=== PATIENT | male | born 1985 | race Caucasian/White ===

== ENCOUNTER 2018-04-08 16:11 | Observation (INO) | payer SELFPAY ==
[2018-04-08 17:35] LABS: Bilirubin Small (Negative); Blood, Urine Negative (Negative); Clarity CLEAR (Clear); Glucose, Urine (Dipstick) Negative (Negative); Leukocyte Trace (Negative); Nitrite Negative (Negative); Protein, Urine (Dipstick) Trace mg/dL (Neg-Trace); Specific Gravity, Urine 1.035 (1.002-1.036); pH, Urine 5.5 (5.0-9.0)
[2018-04-08 17:37] LABS: Bacteria/HPF None Seen HPF (None Seen); Pathc Cast-AUWi Flag 1.16 (0-2.49); RBC/HPF None Seen HPF (0-3)
[2018-04-08 17:47] LABS: Amphetamine Detected (NotDetected); Medtox Reader # READER 4; Methamphetamine Detected (NotDetected); THC/Cannabinoid Screen Detected (NotDetected)
[2018-04-08 17:48] LABS: Barbiturates Screen Not Detected (NotDetected); Benzodiazepine Screen Not Detected (NotDetected); Cocaine Metabolite Screen Not Detected (NotDetected); Medtox Control Line Valid? VALID (VALID); Methadone Not Detected (NotDetected); Opiate Screen Not Detected (NotDetected); Oxycodone Screen Not Detected (NotDetected); Phencyclidine (PCP) Not Detected (NotDetected); Tricyclic Screen Not Detected (NotDetected)
[2018-04-08 17:52] LABS: #Basophils 0.1 thou/uL (0.0-0.2); #Eosinphils 0.1 thou/uL (0.0-0.7); #Lymphocytes 1.5 thou/uL (1.20-3.40); #Monocytes 0.7 thou/uL (0.11-0.59); #Neutrophils 9.5 thou/uL (1.40-6.50); %Basophils 0.8 % (0.0-1.0); %Eosinophils 1.1 % (0.0-10.0); %Lymphocytes 12.5 % (21.0-51.0); %Monocytes 5.7 % (0.0-10.0); Hemoglobin 12.5 g/dL (14.0-18.0); Mean Corpuscular HGB CONC 32.8 g/dL (32.0-36.0); Mean Corpuscular Hemoglobin 29.3 pg (27.0-31.0); Mean Corpuscular Volume 89.1 fL (78.0-98.0); Mean Platelet Volume 6.7 fL (7.4-10.4); Platelet Count 336 thou/uL (130-400); RBC Distribution Width 12.4 % (11.5-14.5); Red Blood Cell (RBC) Count 4.26 mill/uL (4.70-6.10); White Blood Cell (WBC) Count 11.9 thou/uL (4.8-10.8)
[2018-04-08 17:55] LABS: Hyaline Casts/LPF 0-3 HYALINE CAST LPF (0-3 Hyaline); Squamous Epithelial 0-3 HPF (0-3); Transitional Epithelial 0-3 HPF (0-3)
[2018-04-08 18:17] LABS: ALT (SGPT) 13 U/L (8-55); AST (SGOT) 18 U/L (5-34); Acetaminophen Less than 6.0 mcg/mL (10.0-30.0); Alcohol Less than 10 mg/dL (Less than 10); Alkaline Phosphatase 72 U/L (40-150); Anion Gap 11 mmol/L (10-20); BUN (Urea Nitrogen) 19 mg/dL (8.9-20.6); Bilirubin, Total 0.4 mg/dL (0.2-1.2); CK (CPK) 285 U/L (30-200); Calc. Creatinine Clearance 0 mL/min (70-130); Calcium 8.6 mg/dL (7.8-10.44); Carbon Dioxide 26 mmol/L (22-29); Chloride 106 mmol/L (98-107); Estimated GFR-MDRD 74; Globulin 2.9 g/dL (2.4-3.5); Glucose 100 mg/dL (70-105); Potassium 3.8 mmol/L (3.5-5.1); Protein, Total 6.9 g/dL (6.0-8.3); Salicylate Less than 8.0 mg/dL (15.0-30.0); Sodium 139 mmol/L (136-145)
[2018-04-09] MEDS ORDERED: Lorazepam 2 MG/ML VIAL SLOW IVP PRN (01:10)
[2018-04-09] MEDS ORDERED: Ondansetron PF 4 MG/2 ML Vial IVP PRN (01:10)
[2018-04-09] MEDS ORDERED: Ondansetron ODT 4 MG TAB SL PRN (01:10)
[2018-04-09 01:19] VITALS: BMI 23.9
[2018-04-09] MEDS: Sodium Chloride 0.9% 1,000 ML IV SCH ×3 (01:48→09:00)
[2018-04-09] MEDS ORDERED: Acetaminophen 325 MG TAB PO PRN (10:03)
[2018-04-09] MEDS ORDERED: Ondansetron ODT 4 MG TAB PO PRN (10:03)
--- NOTE | 2018-04-09 10:13 | PDOC.EVN ---
Event Note - Event Note Event Note: course and management reviewed with Walter Crum NP. agree, home today
--- NOTE | 2018-04-09 10:35 | HP ---
PRIMARY CARE PHYSICIAN: No primary care provider. HISTORY OF PRESENT ILLNESS: The patient was brought to the emergency room last night, hallucinating about a snake biting him on the butt and then crawling up his rectum into his abdominal cavity, bitin g him on the inside. He has had no nausea and vomiting, no diarrhea. PAST MEDICAL HISTORY: He says he has hypertension, but takes no medicines. ALLERGIES: He has no medical allergies. PAST SURGICAL HISTORY: He denies any surgeries. FAMILY HISTORY: His mother and father both have back problems. SOCIAL HISTORY: He is , smokes one pack a day. Denies alcohol. He admits to methamphetamine and THC. REVIEW OF SYSTEMS: GENERAL: No headaches, dizziness or fainting. EYES: No double vision, blurred vision, flashing lights. ENT: No ear pain or drainage. No nasal bleeding. No trouble swallowing. CARDIAC: No chest pain, orthopnea or paroxysmal nocturnal dyspnea. RESPIRATORY: No cough, wheezing or asthma. GASTROINTESTINAL: See present illness. GENITOURINARY: No hematuria or dysuria. MUSCULOSKELETAL: Occasionally pain in his legs. He thinks he might have a pinched nerve. NEUROLOGIC: No strokes, seizures or focal weakness. PSYCHIATRIC: He states he does have a history of bipolar. SKIN: No bruising, bleeding or rash. HEME/LYMPH: No tender or swollen lymph nodes in axilla, inguinal or cervical area. PHYSICAL EXAMINATION: GENERAL: He is alert, oriented, cooperative. VITAL SIGNS: Temperature 97.6, pulse 86, respirations 16, blood pressure 131/88. He is still insisting that a snake curled up his rectum and is biting him on the inside, he points to the right lower quadrant as his pain. HEENT: Reveal pupils equal, round, and reactive to light. Extraocular movements are intact. Sclera e white. Tympanic membranes clear. Nose clear and throat is clear. NECK: Supple, without jugular venous distention, adenopathy or thyromegaly. CHEST: Clear to auscultation and percussion. HEART: Regular rate and rhythm. First and second heart sounds are clear. There are no murmurs or g allops. ABDOMEN: Soft, bowel sounds are normal. There is no hepatosplenomegaly, no rebound, no guarding, no bruits. EXTREMITIES: Reveal no cyanosis, clubbing or edema. PULSES: Carotid, radial, femoral, and dorsalis pedis pulses intact. SKIN: Warm and dry without bruises, rash or evidence of a bite on his buttocks. LYMPHATIC SURVEY: No tender or swollen lymph nodes in axilla, inguinal or cervical area. NEUROLOGICAL: Cranial nerves II-XII are intact. Deep tendon reflexes symmetric. Moves all extremit ies. LABORATORY AND X-RAY FINDINGS: Drug screen positive for amphetamines, methamphetamines and THC. Com p metabolic profile was normal except for a mildly elevated CK of 285. White count 11.9, hemoglobin 12.5, platelet count 336. The patient is insistent on having an x-ray of his abdomen to find the snake. I have told him I will do a rectal exam to see. He has declined a rectal exam. ASSESSMENT: 1. Acute encephalopathy from polysubstance abuse. 2. Polysubstance abuse. 3. Untreated hypertension by history, currently normotensive. PLAN: We will watch the next few hours. If nothing develops, he develops no further delusional or h allucinatory thoughts, we will discharge home. I have advised him of such.
--- NOTE | 2018-04-09 11:55 | DIS ---
DATE OF ADMISSION: 04/09/2018 DATE OF DISCHARGE: 04/09/2018 TRANSFER OF CARE DISCHARGE DISPOSITION: Home. PRIMARY CARE PROVIDER: None. FINAL DIAGNOSES: 1. Encephalopathy with hallucinations. 2. Polysubstance abuse with THC and methamphetamine. DISCHARGE MEDICATIONS: None. CODE STATUS: Full. DIET: No restrictions. PENDING AT THE TIME OF DISCHARGE: Nothing. HOSPITAL COURSE: The patient presented to the emergency room, hallucinating about being bit on the b uttocks by a snake and the snake crawling up into his rectum and biting him all over his insides. Hi s physical examination was unremarkable. His only pertinent lab was positive drug screen for ampheta mines, methamphetamine and THC. He is now calm, is desirous of going home. He is being discharged. I have told him he should find a PCP for medical care. CONSULTATIONS: No consultations. PROCEDURES: No procedures.
[2018-04-09 12:06] VITALS: BP 130/83; TEMP 97.3
== END 2018-04-09 12:59 | disposition home or self-care (01) ==
LOC: ERS 16:11 → 2SW 04-09 00:49
PROVIDERS: ADMIT Internal Medicine; ATTEND Internal Medicine
DX: G93.40 Encephalopathy, unspecified (principal); F15.10 Other stimulant abuse, uncomplicated; F19.10 Other psychoactive substance abuse, uncomplicated
CPT/HCPCS: 36415; 51701; 80053; 80306; 80307; 81003; 81015; 82550; 84443; 85025; 96360; 96361; G0378

== ENCOUNTER 2018-09-22 09:27 | Emergency (ER) | payer SELFPAY | END 2018-09-22 11:59 | disposition home or self-care (01) | LOC: ERS 09:27 | DX: K04.7 Periapical abscess without sinus (principal); K02.9 Dental caries, unspecified; F17.210 Nicotine dependence, cigarettes, uncomplicated | CPT/HCPCS: 99282 ==

== ENCOUNTER 2018-11-13 13:15 | Emergency (ER) | payer SELFPAY ==
--- NOTE | 2018-11-13 14:07 | RAD ---
LEFT FOOT THREE VIEWS: 11/13/18 HISTORY: Left foot injury following stepping on a nail three days ago with swelling and redness and drainage f rom site. FINDINGS/IMPRESSION: No fracture, dislocation, or other significant acute osseous abnormality. If there is concern for abs cess, follow-up MRI study with and without IV contrast might be of benefit. POS: [facility]
[2018-11-13] MEDS ORDERED: Adacel (T-DAP) 0.5 ML SYRINGE ONE (14:49)
[2018-11-13] MEDS ORDERED: Lidocaine 1% (PF) 30 ML VIAL ONE (15:08)
[2018-11-13] MEDS ORDERED: Ketorolac Tromethamine 30 MG/ML VIAL ONE (15:20)
== END 2018-11-13 16:15 | disposition home or self-care (01) ==
LOC: ERS 13:15
DX: S91.332A Puncture wound without foreign body, left foot, initial encounter (principal); L03.116 Cellulitis of left lower limb; F41.9 Anxiety disorder, unspecified; F32.9 Major depressive disorder, single episode, unspecified; F17.210 Nicotine dependence, cigarettes, uncomplicated; W45.0XXA Nail entering through skin, initial encounter
CPT/HCPCS: 90471; 90715; 96372; J1885; J2001

== ENCOUNTER 2018-12-26 17:40 | Emergency (ER) | payer SELFPAY ==
--- NOTE | 2018-12-26 18:22 | RAD ---
RIGHT FOOT: 12/26/18 Three views. HISTORY: Injury. Tarsals appear intact. The metatarsals and phalanges appear intact. Circumscribed lucency in the pro ximal phalanx of the great toe has benign appearance. MTP joints unremarkable with minimal degenerati ve change at the first MTP joint. IMPRESSION: No acute abnormality identified. POS: [facility]
[2018-12-26] MEDS ORDERED: Bacitracin 1 PK ONE (18:23)
== END 2018-12-26 18:28 | disposition home or self-care (01) ==
LOC: ERS 17:40
DX: S91.101A Unspecified open wound of right great toe without damage to nail, initial encounter (principal); F41.9 Anxiety disorder, unspecified; F32.9 Major depressive disorder, single episode, unspecified; F17.210 Nicotine dependence, cigarettes, uncomplicated; W26.8XXA Contact with other sharp object(s), not elsewhere classified, initial encounter

== ENCOUNTER 2020-02-02 16:31 | Emergency (ER) | payer SELFPAY ==
[2020-02-02] MEDS ORDERED: Bicillin LA 2.4 MILL.UNITS/4 ML SYRINGE ONE (17:43)
[2020-02-02 18:12] LABS: Syphilis Antibody Nonreactive (Nonreactive); Syphilis Antibody Index 0.05 S/CO (<1.00 Non-Reactive)
== END 2020-02-02 18:10 | disposition home or self-care (01) ==
LOC: ERS 16:31
DX: S31.21XA Laceration without foreign body of penis, initial encounter (principal); A51.0 Primary genital syphilis; F41.9 Anxiety disorder, unspecified; F32.9 Major depressive disorder, single episode, unspecified; F17.210 Nicotine dependence, cigarettes, uncomplicated; X58.XXXA Exposure to other specified factors, initial encounter
CPT/HCPCS: 36415; 86780; 96372; 99283; J0561

== ENCOUNTER 2020-07-11 12:41 | Inpatient (IN) | payer SELFPAY ==
[~2020-07-11 12:41] MED LIST: Iopamidol-370 76% 500 ML 1 ML ONE
[2020-07-11 15:55] LABS: Hemoglobin 12.1 g/dL (14.0-18.0); Mean Corpuscular HGB CONC 33.3 g/dL (32.0-36.0); Mean Corpuscular Hemoglobin 29.3 pg (27.0-31.0); Mean Corpuscular Volume 88.1 fL (78.0-98.0); Mean Platelet Volume 6.2 fL (7.4-10.4); Platelet Count 509 thou/uL (130-400); RBC Distribution Width 12.3 % (11.5-14.5); Red Blood Cell (RBC) Count 4.11 mill/uL (4.70-6.10); White Blood Cell (WBC) Count 20.1 thou/uL (4.8-10.8)
[2020-07-11 16:15] LABS: ALT (SGPT) 29 U/L (8-55); AST (SGOT) 23 U/L (5-34); Albumin 3.8 g/dL (3.5-5.0); Alkaline Phosphatase 101 U/L (40-110); Anion Gap 19 mmol/L (10-20); BUN (Urea Nitrogen) 18 mg/dL (8.9-20.6); Bilirubin, Total 0.4 mg/dL (0.2-1.2); Calc. Creatinine Clearance 0 mL/min (70-130); Carbon Dioxide 24 mmol/L (22-29); Chloride 94 mmol/L (98-107); Globulin 4.4 g/dL (2.4-3.5); Glucose 106 mg/dL (70-105); Lipase 6 U/L (8-78); Potassium 4.1 mmol/L (3.5-5.1); Protein, Total 8.2 g/dL (6.0-8.3); Sodium 133 mmol/L (136-145)
[2020-07-11 16:19] LABS: Band 18 % (5-11); Eosinophils 1 % (0-10); Lymphocytes 7 % (21-51); MDiff Complete? YES; Monocytes 8 % (0-10); Neutrophil 66 % (42-75); Platelet Morphology Comment Appears Increased; RBC Morphology Normal
[2020-07-11 16:44] LABS: #Basophils 0.1 thou/uL (0.0-0.2); #Eosinphils 0.3 thou/uL (0.0-0.7); #Lymphocytes 2.1 thou/uL (1.20-3.40); #Neutrophils 15.9 thou/uL (1.40-6.50); %Basophils 0.3 % (0.0-1.0); %Eosinophils 1.5 % (0.0-10.0); %Lymphocytes 10.1 % (21.0-51.0); %Neutrophils 78.1 % (42.0-75.0)
[2020-07-11 18:30] LABS: Bilirubin Negative (Negative); Blood, Urine Negative (Negative); Clarity Clear (Clear); Glucose, Urine (Dipstick) Normal (Negative); Ketone, Urine Negative (Negative); Leukocyte Negative Leu/uL (Negative); Nitrite Negative (Negative); Protein, Urine (Dipstick) 20 mg/dL (Neg-Trace); Urobilinogen Normal mg/dL (Less than 2); pH, Urine 5.5 (5.0-9.0)
[2020-07-11] MEDS ORDERED: Piperacillin/Tazobactam 4.5 GM VIAL ONE (18:31)
--- NOTE | 2020-07-11 19:01 | CT ---
CT ABDOMEN AND PELVIS WITH IV CONTRAST: History: Abdominal pain FINDINGS: The lung bases are clear. The liver, spleen, pancreas, adrenal glands and kidneys are normal. No calc ified gallstones are seen. No free air is seen. There is a small amount of free fluid in the right lo wer quadrant. There is thickening of the wall of the right colon and cecum. There are multiple air fl uid collections in the right lower quadrant/pelvis inferior to the cecum, the largest measuring 6.5 x 3.3 x 6 cm. Enlarged ileocecal lymph nodes are present. There is a moderate amount of free fluid in the pelvis. IMPRESSION: Multiple abcesses in the right lower quadrant/pelvis, likely due to complications of appendicitis. Discussed over the telephone with the ER physician, Dr. Micheal Caro, at 6:08 p.m. POS: [facility]
[2020-07-11] MEDS ORDERED: Ondansetron PF 4 MG/2 ML Vial IVP PRN (20:47)
[2020-07-11] MEDS ORDERED: Morphine 2 MG/ML VIAL SLOW IVP PRN (20:50)
[2020-07-11] MEDS ORDERED: Lorazepam 2 MG/ML VIAL SLOW IVP PRN (20:51)
--- NOTE | 2020-07-11 20:53 | PDOC.HHP ---
Hospitalist HPI Abdominal pain History of Present Illness: Dominki 5-year-old male weeks past medical history of chronic tobacco use on meds use admitted for abdominal pain with nausea but no vomiting since the last 7 days. Pain initially generalized nonradiating worse with p.o. intake. Patient admits to constipation. He denies any diarrhea. Pain he rates at 8 out of 10 and crampy. On presentation in the ED CT scan showed evidence of appendicitis with pelvic abscesses. Surgery has been consulted. Patient is being admitted for IV antibiotics and surgical intervention. Patient still admits to persistent pain but he is anxious to smoke. He admits to history of EGD for removal of foreign body in childhood but denies any past medical history. He denies any excessive bleeding. Allergies/Adverse Reactions: Allergy/AdvReac Type Severity Reaction Status Date / Time No Known Allergies Allergy Verified 08/23/19 00:04 Home Medications: Medication Instructions Recorded Confirmed Type No Known 04/09/18 04/09/18 History Past History: PMHx: None PSHx: None FHx: Parents is alive and well, grandparents with cardiac disease Social: Admits to 1 pack/day tobacco use, Admits to regular methamphetamine and marijuana use, last use was 2 days ago Denies any heavy alcohol intake Hospitalist HPI ROS Gastrointestinal: reports: nausea, abdominal pain, constipation All other systems reviewed; all pertinent +/- noted in HPI/Subj Hospitalist Exam General Appearance: NAD, awake alert Eye: PERRL, anicteric sclera ENT: normocephalic atraumatic, no oropharyngeal lesions, moist mucosa Neck: supple, symmetric, no JVD Heart: RRR, no murmur Respiratory: CTAB, no wheezes Gastrointestinal: soft, non-distended, no guarding, no rigidity, tender to palpation Extremities: no cyanosis, no clubbing Skin: normal turgor, no lesions Neurological: cranial nerve grossly intact, normal sensation to touch Musculoskeletal: normal tone, normal strength Psychiatric: normal affect, normal behavior, A&O x 3 Hospitalist Results Result Diagrams: 07/11/20 15:43 07/11/20 15:43 Lab results: Laboratory Last Values WBC 20.1 thou/uL (4.8-10.8) H 07/11/20 15:43 RBC 4.11 mill/uL (4.70-6.10) L 07/11/20 15:43 Hgb 12.1 g/dL (14.0-18.0) L 07/11/20 15:43 Hct 36.2 % (42.0-52.0) L 07/11/20 15:43 MCV 88.1 fL (78.0-98.0) 07/11/20 15:43 MCH 29.3 pg (27.0-31.0) 07/11/20 15:43 MCHC 33.3 g/dL (32.0-36.0) 07/11/20 15:43 RDW 12.3 % (11.5-14.5) 07/11/20 15:43 Plt Count 509 thou/uL (130-400) H 07/11/20 15:43 MPV 6.2 fL (7.4-10.4) L 07/11/20 15:43 Neutrophils % 78.1 % (42.0-75.0) H 07/11/20 15:43 Neutrophils % (Manual) 66 % (42-75) 07/11/20 15:43 Band Neuts % (Manual) 18 % (5-11) H 07/11/20 15:43 Lymphocytes % 10.1 % (21.0-51.0) L 07/11/20 15:43 Lymphocytes % (Manual) 7 % (21-51) L 07/11/20 15:43 Monocytes % 10.0 % (0.0-10.0) 07/11/20 15:43 Monocytes % (Manual) 8 % (0-10) 07/11/20 15:43 Eosinophils % 1.5 % (0.0-10.0) 07/11/20 15:43 Eosinophils % (Manual) 1 % (0-10) 07/11/20 15:43 Basophils % 0.3 % (0.0-1.0) 07/11/20 15:43 Neutrophils # 15.9 thou/uL (1.40-6.50) H 07/11/20 15:43 Lymphocytes # 2.1 thou/uL (1.20-3.40) 07/11/20 15:43 Monocytes # 2.0 thou/uL (0.11-0.59) H 07/11/20 15:43 Eosinophils # 0.3 thou/uL (0.0-0.7) 07/11/20 15:43 Basophils # 0.1 thou/uL (0.0-0.2) 07/11/20 15:43 Plt Morphology Comment Appears Increased H 07/11/20 15:43 RBC Morph Comment Normal 07/11/20 15:43 Sodium 133 mmol/L (136-145) L 07/11/20 15:43 Potassium 4.1 mmol/L (3.5-5.1) 07/11/20 15:43 Chloride 94 mmol/L (98-107) L 07/11/20 15:43 Carbon Dioxide 24 mmol/L (22-29) 07/11/20 15:43 Anion Gap 19 mmol/L (10-20) 07/11/20 15:43 BUN 18 mg/dL (8.9-20.6) 07/11/20 15:43 Creatinine 0.96 mg/dL (0.7-1.3) 07/11/20 15:43 Estimated GFR (MDRD) 88 07/11/20 15:43 Glucose 106 mg/dL (70-105) H 07/11/20 15:43 Lactic Acid 1.1 mmol/L (0.5-2.2) 07/11/20 18:55 Calcium 9.0 mg/dL (7.8-10.44) 07/11/20 15:43 Total Bilirubin 0.4 mg/dL (0.2-1.2) 07/11/20 15:43 AST 23 U/L (5-34) 07/11/20 15:43 ALT 29 U/L (8-55) 07/11/20 15:43 Alkaline Phosphatase 101 U/L (40-110) 07/11/20 15:43 Serum Total Protein 8.2 g/dL (6.0-8.3) 07/11/20 15:43 Albumin 3.8 g/dL (3.5-5.0) 07/11/20 15:43 Globulin 4.4 g/dL (2.4-3.5) H 07/11/20 15:43 Albumin/Globulin Ratio 0.9 g/dL (1.2-2.2) L 07/11/20 15:43 Lipase 6 U/L (8-78) L 07/11/20 15:43 Urine Color Yellow (Yellow) 07/11/20 18:03 Urine Clarity Clear (Clear) 07/11/20 18:03 Urine pH 5.5 (5.0-9.0) 07/11/20 18:03 Ur Specific [place] 1.040 (1.002-1.036) H 07/11/20 18:03 Urine Protein 20 mg/dL (Neg-Trace) 07/11/20 18:03 Urine Glucose (UA) Normal mg/dL (Negative) 07/11/20 18:03 Urine Ketones Negative mg/dL (Negative) 07/11/20 18:03 Urine Blood Negative (Negative) 07/11/20 18:03 Urine Nitrite Negative (Negative) 07/11/20 18:03 Urine Bilirubin Negative (Negative) 07/11/20 18:03 Urine Urobilinogen Normal mg/dL (Less than 2) 07/11/20 18:03 Ur Leukocyte Esterase Negative Negro/uL (Negative) 07/11/20 18:03 Hospitalist H&P A/P (1) Appendiceal abscess Code(s): K35.33 - ACUTE APPENDICITIS WITH PERF AND LOC PERITONITIS, WITH ABSCS Status: Acute (2) Tobacco abuse Code(s): Z72.0 - TOBACCO USE Status: Acute (3) Polysubstance abuse Code(s): F19.10 - OTHER PSYCHOACTIVE SUBSTANCE ABUSE, UNCOMPLICATED Status: Acute Plan: Appendiceal abscesswill admit We will start gentle IV fluid Monitor CBC trend Start empirical antibiotic to vancomycin and Flagyl Surgical consult obtained, plan for surgical intervention in a.m. Patient is cleared for surgery Keep n.p.o. overnight Polysubstance abuse/tobacco usewe will start nicotine patch We will do Ativan as needed for withdrawal if any We will monitor closely DVT prophylaxissubcutaneous heparin, but hold 12 hours presurgery Dispositionpossible hospital stay for 48 hours
[2020-07-11] MEDS ORDERED: HYDROmorphone 0.5 MG/0.5 ML SYRINGE SLOW IVP PRN (22:32)
[2020-07-11 23:19] LABS: SARS-CoV-2 NAA Rapid Test Not Detected (NotDetected)
[2020-07-11] MEDS ORDERED: Vancomycin 1 GM in Premix Bag 1 BAG IVPB SCH (23:59)
[2020-07-12] MEDS: Dextrose 5 % And 0.9 % NaCl 1,000 ML IV SCH ×3 (02:54→21:15)
[2020-07-12] MEDS ORDERED: Famotidine/PF 20 mg/2ml Vial ONE ×2 (03:00→10:26)
[2020-07-12] MEDS ORDERED: metroNIDAZOLE 500 MG/100 ML BAG ONE (03:02)
[2020-07-12] MEDS ORDERED: Vancomycin 1 GM/200 ML BAG ONE ×2 (03:02→12:17)
[2020-07-12] MEDS: metroNIDAZOLE 500 MG in Premix Bag 1 BAG IVPB SCH ×4 (03:15→22:35)
[2020-07-12] MEDS: Nicotine 21 MG PATCH TD SCH ×2 (03:15→21:15)
[2020-07-12] MEDS: Famotidine/PF 20 mg/2ml Vial SLOW IVP SCH ×3 (03:15→21:14)
[2020-07-12] MEDS: Bupropion 150 MG SR TAB PO SCH ×2 (03:25→21:15)
[2020-07-12] MEDS: Heparin 5,000 UNITS/ML VIAL SC SCH ×4 (03:38→21:15)
[2020-07-12 05:33] LABS: #Basophils 0.1 thou/uL (0.0-0.2); #Eosinphils 0.4 thou/uL (0.0-0.7); #Lymphocytes 2.6 thou/uL (1.20-3.40); #Monocytes 1.4 thou/uL (0.11-0.59); #Neutrophils 8.7 thou/uL (1.40-6.50); %Basophils 0.4 % (0.0-1.0); %Eosinophils 3.2 % (0.0-10.0); %Lymphocytes 19.9 % (21.0-51.0); %Monocytes 10.3 % (0.0-10.0); %Neutrophils 66.2 % (42.0-75.0); Hemoglobin 10.6 g/dL (14.0-18.0); Mean Corpuscular HGB CONC 31.6 g/dL (32.0-36.0); Mean Corpuscular Hemoglobin 28.1 pg (27.0-31.0); Mean Platelet Volume 6.2 fL (7.4-10.4); Platelet Count 484 thou/uL (130-400); RBC Distribution Width 12.4 % (11.5-14.5); Red Blood Cell (RBC) Count 3.77 mill/uL (4.70-6.10); White Blood Cell (WBC) Count 13.2 thou/uL (4.8-10.8)
[2020-07-12 05:55] LABS: ALT (SGPT) 35 U/L (8-55); AST (SGOT) 30 U/L (5-34); Albumin 3.2 g/dL (3.5-5.0); Alkaline Phosphatase 99 U/L (40-110); Anion Gap 12 mmol/L (10-20); BUN (Urea Nitrogen) 11 mg/dL (8.9-20.6); Bilirubin, Total 0.2 mg/dL (0.2-1.2); Calc. Creatinine Clearance 0 mL/min (70-130); Calcium 8.1 mg/dL (7.8-10.44); Carbon Dioxide 26 mmol/L (22-29); Chloride 104 mmol/L (98-107); Globulin 3.6 g/dL (2.4-3.5); Glucose 103 mg/dL (70-105); Potassium 4.3 mmol/L (3.5-5.1); Protein, Total 6.8 g/dL (6.0-8.3); Sodium 138 mmol/L (136-145)
[2020-07-12 09:49] VITALS: BMI 23.0
[2020-07-12] MEDS: Fentanyl 100 MCG/2 ML VIAL SLOW IVP PRN ×4 (10:41→21:14)
[2020-07-12] MEDS ORDERED: Fentanyl 100 MCG/2 ML VIAL ONE (10:42)
--- NOTE | 2020-07-12 10:52 | PDOC.HOSPP ---
- Subjective Encounter Date: 07/12/20 Subjective: Continues to have abdominal pain. - Objective Vital Signs & Weight: Vital Signs (12 hours) Temp Pulse Resp BP Pulse Ox 07/12/20 08:32 97.8 F 68 14 117/81 99 07/12/20 08:00 99 Weight Weight 164 lb 14.492 oz Result Diagrams: 07/12/20 05:19 07/12/20 05:19 Hospitalist ROS - Medication Medications: Active Medications Generic Name Dose Route Start Last Admin Trade Name Freq PRN Reason Stop Dose Admin Bupropion HCl 150 mg 07/11/20 21:00 07/12/20 03:25 Bupropion 150 Mg Sr Tab PO 07/13/20 21:01 Not Given 2100 DANIKA Famotidine 20 mg 07/11/20 21:00 07/12/20 10:28 Famotidine/Pf 20 Mg/2ml Vial SLOW IVP 20 mg Q12HR DANIKA Administration Fentanyl 25 mcg 07/12/20 10:30 07/12/20 10:41 Fentanyl 100 Mcg/2 Ml Vial SLOW IVP 25 mcg Q2H PRN Administration Pain Heparin Sodium (Porcine) 5,000 units 07/11/20 21:00 07/12/20 10:29 Heparin 5,000 Units/Ml Vial SC 5,000 units TID DANIKA Administration Metronidazole 500 mg/ Device 100 mls @ 100 mls/hr 07/11/20 22:00 07/12/20 10:29 IVPB 100 mls Q8HR DANIKA Administration Dextrose/Sodium Chloride 1,000 mls @ 125 mls/hr 07/11/20 21:00 07/12/20 09:39 D5 0.9% Ns IV 1,000 mls .Q8H DANIKA Administration Nicotine 21 mg 07/11/20 21:00 07/12/20 03:15 Nicotine 21 Mg Patch TD Not Given Q24HR [facility] Hospitalist Exam Vitals: Vital Signs (12 hours) Temp Pulse Resp BP Pulse Ox 07/12/20 08:32 97.8 F 68 14 117/81 99 07/12/20 08:00 99 Weight Weight 164 lb 14.492 oz General Appearance: NAD Eye: PERRL, anicteric sclera ENT: normocephalic atraumatic Neck: supple, symmetric Heart: RRR, no murmur Gastrointestinal: tender to palpation ( a bit rigid) Extremities: no cyanosis Skin: normal turgor Hosp A/P (1) Appendiceal abscess Code(s): K35.33 - ACUTE APPENDICITIS WITH PERF AND LOC PERITONITIS, WITH ABSCS Status: Acute (2) Tobacco abuse Code(s): Z72.0 - TOBACCO USE Status: Acute (3) Polysubstance abuse Code(s): F19.10 - OTHER PSYCHOACTIVE SUBSTANCE ABUSE, UNCOMPLICATED Status: Acute - Plan Plan for today 07/12 Patient continues to have abdominal pain, he is awaiting surgical evaluation. We will continue with his current antibiotics and will continue hydrating him, will provide him with IV fentanyl for pain control since he is allergic to morphine.
[2020-07-12] MEDS: Vancomycin 1 GM in Premix Bag 1 BAG IVPB SCH ×2 (12:17→18:15)
[2020-07-12 15:12] LABS: INR-International Normal Ratio 1.1; Prothrombin Time 14.8 sec (12.0-14.7)
[2020-07-12 15:13] LABS: PTT 42.8 sec (22.9-36.1)
--- NOTE | 2020-07-12 16:21 | CON ---
DATE OF CONSULTATION: 07/12/2020 HISTORY OF PRESENT ILLNESS: Mr. Choi is a 35-year-old man, who presented to the emergency department yesterday with a 7-day history of what started as periumbilical abdominal pain, which settled in the right lower quadrant. Pain apparently intensified to high 10/10, approximately 2 to 3 days after the onset. He experienced a slight improvement about day 3 and soon after developed some malaise and low-grade fever. The patient was not able to go to the emergency department due to lack of transportation and did not want to call the ambulance. At the time of my evaluation, he reports 7/10 abdominal pain. He denies any nausea or vomiting. PAST MEDICAL HISTORY: Denies any previous medical problems. PAST SURGICAL HISTORY: Pertinent for bronchoscopy and extraction of foreign body as a child. SOCIAL HISTORY: He lives independently. He is currently unemployed. He admits to smoking one pack of cigarettes per day and has done so for over 20 years. He indulges in methamphetamine and marijuana usage. The last time he used was 2 days ago. He denies any ethanol abuse. FAMILY HISTORY: Includes coronary artery disease in both grandfathers. He denies any family history of diabetes mellitus, hypertension, or cancer. PRE-HOSPITAL MEDICATIONS: None. ALLERGIES: TO MORPHINE. REVIEW OF SYSTEMS: Ten-point review of systems essentially unremarkable except as stated in Past Medical History and Chief Complaint. PHYSICAL EXAMINATION: GENERAL: This reveals a 35-year-old normally-developed man, who is otherwise coherent, interactive and appears stated age. The patient is alert and oriented x3, appears to be in no acute distress at the time of my evaluation. VITAL SIGNS: Include blood pressure 117/81, pulse 68, respiratory rate is 14, temperature 97.8 degrees Fahrenheit, and oxygen saturation is 99% on room air. HEART: Reveals regular rate and rhythm. No murmurs or gallops auscultated. LUNGS: Clear to auscultation bilaterally. Breathing, regular and unlabored. ABDOMEN: Soft, moderately distended and tender to palpation, right greater than left. He has a positive rebound tenderness. Liver and spleen otherwise nonpalpable below costal margins. NEUROLOGIC: Reveals no focal deficits present. LABORATORY FINDINGS: Include a CBC with 13,200 white blood cells, this is down from 20,100 yesterday; hemoglobin and hematocrit are 10.6 and 33.5 respectively; and the platelet count is 484,000 down from 509,000 yesterday. Metabolic profile; sodium 138, potassium 4.3, chloride is 104, bicarb is 26, BUN 11, creatinine 0.87, and glucose 103. AST and ALT are 30 and 35 respectively. Serum lipase was normal yesterday at 6. I have personally reviewed the noncontrast CT scan of the abdomen and pelvis, which reveals multiple fluid collections in the right lower quadrant with air-fluid levels. Also noted is a moderate amount of free fluid in the pelvis as well as thickened right colon and cecum. IMPRESSION: Likely missed acute appendicitis with perforation and periappendiceal and pelvic abscesses. RECOMMENDATIONS AND PLAN: 1. Percutaneous drainage of the right-sided fluid collections. If it is amenable to percutaneous drainage by Radiology, otherwise the patient will be taken to the operating room for laparoscopic drainage of pelvic abscesses and possibly completion appendectomy. 2. Continue with broad-spectrum antibiotic therapy. 3. The above findings and plan has been discussed with the patient, who indicates understanding of the information provided. 4. I have advised him of potential risks for recurrent pelvic abscesses, even after complete treatment is achieved. 5. The patient indicates understanding information provided. 6. I have answered his questions. Thank you again, Dr. Gonzalez, for allowing me the opportunity to participate in the care of this patient. Job ID: [id number]
[2020-07-12] MEDS ORDERED: Sodium Bicarbonate 2.5 MEQ/5 ML VIAL ONE (16:38)
[2020-07-13 01:59] LABS: #Eosinphils 0.5 thou/uL (0.0-0.7); #Lymphocytes 2.7 thou/uL (1.20-3.40); #Monocytes 0.8 thou/uL (0.11-0.59); #Neutrophils 3.1 thou/uL (1.40-6.50); %Eosinophils 6.7 % (0.0-10.0); %Lymphocytes 37.9 % (21.0-51.0); %Monocytes 11.2 % (0.0-10.0); %Neutrophils 44.2 % (42.0-75.0); Hemoglobin 10.5 g/dL (14.0-18.0); Mean Corpuscular HGB CONC 33.2 g/dL (32.0-36.0); Mean Corpuscular Hemoglobin 29.5 pg (27.0-31.0); Mean Corpuscular Volume 88.9 fL (78.0-98.0); Mean Platelet Volume 6.1 fL (7.4-10.4); Platelet Count 469 thou/uL (130-400); RBC Distribution Width 12.2 % (11.5-14.5); Red Blood Cell (RBC) Count 3.55 mill/uL (4.70-6.10)
[2020-07-13 02:16] LABS: Vancomycin, Trough 12.6 ug/mL
[2020-07-13 02:32] LABS: Anion Gap 14 mmol/L (10-20); BUN (Urea Nitrogen) 13 mg/dL (8.9-20.6); Calc. Creatinine Clearance 134 mL/min (70-130); Carbon Dioxide 24 mmol/L (22-29); Chloride 105 mmol/L (98-107); Glucose 140 mg/dL (70-105); Potassium 3.9 mmol/L (3.5-5.1); Sodium 139 mmol/L (136-145)
[2020-07-13] MEDS: Vancomycin 1 GM in Premix Bag 1 BAG IVPB SCH (02:55)
[2020-07-13] MEDS: metroNIDAZOLE 500 MG in Premix Bag 1 BAG IVPB SCH (05:51)
[2020-07-13] MEDS: Fentanyl 100 MCG/2 ML VIAL SLOW IVP PRN ×3 (07:01→21:30)
[2020-07-13] MEDS ORDERED: FLU VACC QS2020-21(6MOS UP)/PF 60 MCG/0.5 ML SYRINGE IM ONE (08:45)
[2020-07-13] MEDS: Famotidine/PF 20 mg/2ml Vial SLOW IVP SCH ×2 (08:52→21:17)
[2020-07-13] MEDS: Dextrose 5 % And 0.9 % NaCl 1,000 ML IV SCH ×2 (08:55→17:35)
--- NOTE | 2020-07-13 09:12 | CT ---
CT Abdomen Pelvis WO Con 07/12/2020 4:30 PM HISTORY: Abscess right lower quadrant pelvis. Drainage was requested. This exam was performed after demonstrat ion of oral contrast to discern bowels from the collection. COMPARISON: 07/11/2020 Technique: Multiple contiguous axial CT images are obtained through the abdomen and pelvis without IV contrast. Coronal reformats are provided. FINDINGS: This examination is limited for the evaluation of solid organs and vascular structures due to the lac k of intravenous contrast. Lower Chest: Lung bases are clear. Liver: Grossly normal non-enhanced CT appearance. Gallbladder: Within normal limits for CT imaging. Pancreas: Grossly normal nonenhanced CT appearance. Spleen: Grossly normal nonenhanced CT appearance. Adrenals: Grossly normal nonenhanced CT appearance. Kidneys and ureters: No renal or ureteral calculi are seen bilaterally. Urinary bladder: Suggested mild thickening of angulo urinary bladder which is probably attributable to incomplete distention. Reproductive Organs: No pelvic masses. Lymph Nodes: Difficult to evaluate due to lack of intra-abdominal fat. No obvious enlarged lymph node s are appreciated by CT size criteria. Bowel: Opacified bowel is normal in caliber. Appendix: Not visualized. Peritoneum: Previously noted large fluid collection within the right lower quadrant/upper pelvis has decreased in size with findings on current study predominantly related to prominent amount of inflammatory changes and small focus of gas with minimal fluid present. There is a punctate focus of increased density within the lower portion of the collection which could represent punctate focus of contrast. The inflammatory changes in the right lower quadrant/upper pelvis which do result in eff acement of adjacent loops of bowel with mild thickening of angulo of a loop of small bowel likely reactive in origin. This collection is in the expected location of the appendix, but the appendix is not visualized on this exam. Findings could potentially be related to abscess collection secondary to ruptured appendicitis, but this is difficult to definitively determine. Inflammatory stranding is seen in the right lower quadrant. Small amount of free fluid was seen in the pelvis on the prior exam, but this is less apparent on the current study. Retroperitoneum: within normal limits. Vessels: Abdominal aorta is normal in caliber.. Abdominal Wall: within normal limits. Bones: No lytic or sclerotic osseous lesions. IMPRESSION: 1. Previously described right lower quadrant/upper pelvis abscess collection has decompressed and the fluid portion within the collection has significantly decreased. Findings now predominantly represent prominent inflammatory/phlegmonous changes with small focus of gas centrally. At the lower portion of the collection there is a punctate focus of increased density which could represent tiny amount of contrast, and this could be related to communication with bowel. Previously seen free fluid in the pelvis has decreased. No free intraperitoneal gas is appreciated. 2. Opacified loops of small bowel are normal in caliber. There is focal thickening of a loop of small bowel in the right aspect of the pelvis which is likely reactive in origin secondary to inflammatory process in the right lower quadrant. 3. Given interval decrease in the fluid component of the collection, drainage was not performed at th is time. Findings were discussed with YAMILETH Smith at this time.
[2020-07-13] MEDS: Piperacillin/Tazobactam 3.375 GM in Sodium Chloride 0.9% 100 ML IVPB SCH ×3 (09:39→23:19)
[2020-07-13] MEDS: Heparin 5,000 UNITS/ML VIAL SC SCH ×2 (09:52→16:11)
[2020-07-13] MEDS ORDERED: Lidocaine 1% PF 5 ML VIAL ONE (12:04)
[2020-07-13] MEDS ORDERED: Ondansetron PF 4 MG/2 ML Vial ONE (12:04)
[2020-07-13] MEDS ORDERED: Succinylcholine 200 MG/10 ml SYRINGE FS ONE (12:04)
[2020-07-13] MEDS ORDERED: Ketorolac Tromethamine 30 MG/ML VIAL ONE (12:04)
[2020-07-13] MEDS ORDERED: Metoclopramide HCl 10 MG/2 ML VIAL ONE (12:04)
[2020-07-13] MEDS ORDERED: Rocuronium Bromide 10 MG/ML (10ML VIAL) ONE (12:04)
[2020-07-13] MEDS ORDERED: PHENYLEPHRINE-NS 100 MCG/ML 10 ML SYRINGE ONE (12:04)
[2020-07-13] MEDS ORDERED: PROPOFOL 200 MG/20 ML VIAL ONE (12:04)
[2020-07-13] MEDS ORDERED: Dexamethasone 20 MG/5 ML VIAL ONE (12:04)
--- NOTE | 2020-07-13 13:11 | PDOC.GSPN ---
Surgery Progress Note: Subj - Subjective Patient reports: still having pain Narrative: Mr. Choi is still in considerable pain today and he stated that he his stressed about his situation. He rated his pain as 10/10. Interventional radiology was consulted and they determined that there was not enough fluid left to be drained and therefore decided against placing a drain. Mr. Choi said that voiding hurts. His WBC count is down from 13 yesterday to 7 today. Surgery Progress Note: Obj - Vital signs Vital signs: Vital Signs - Most Recent Temp Pulse Resp BP Pulse Ox 97.6 F 64 16 101/72 100 07/13/20 11:06 07/13/20 11:06 07/13/20 11:06 07/13/20 11:06 07/13/20 11:06 - Physical Exam General: moderate distress, severe pain (10/10 pain located in lower abdomen) Abdomen: guarding, tender Surgery Progress Note: Results - Labs Result Diagrams: 07/13/20 01:48 07/13/20 01:48 Lab results: Laboratory Results - last 12 hr 07/13/20 07/13/20 07/13/20 01:48 01:48 01:48 WBC 7.0 RBC 3.55 L Hgb 10.5 L Hct 31.6 L MCV 88.9 MCH 29.5 MCHC 33.2 RDW 12.2 Plt Count 469 H MPV 6.1 L Neutrophils % 44.2 Lymphocytes % 37.9 Monocytes % 11.2 H Eosinophils % 6.7 Basophils % 0.0 Neutrophils # 3.1 Lymphocytes # 2.7 Monocytes # 0.8 H Eosinophils # 0.5 Basophils # 0.0 Sodium 139 Potassium 3.9 Chloride 105 Carbon Dioxide 24 Anion Gap 14 BUN 13 Creatinine 0.80 Estimated GFR (MDRD) Greater than 90 Glucose 140 H Calcium 8.0 Vancomycin Trough 12.6 Surgery Progress Note: A/P - Problem (1) Appendiceal abscess Current Visit: Yes Code(s): K35.33 - ACUTE APPENDICITIS WITH PERF AND LOC PERITONITIS, WITH ABSCS Status: Acute Assessment and Plan: Stop vancomycin, start zosyn and meropenem OR Laprascopic Appendectomy & drain abscess Addendum - Attending - Attending Attestation Date/Time: 07/13/20 [id number] I personally evaluated the patient and discussed the management with . [] I agree with the History, Examination, Assessment and Plan documented above with any addition or exceptions noted below.
[2020-07-13] MEDS ORDERED: Fentanyl 100 MCG/2 ML VIAL ONE ×2 (13:34→16:17)
[2020-07-13] MEDS ORDERED: Bupivacaine 0.25% HCL 30 ML VIAL ONE (13:46)
[2020-07-13] MEDS ORDERED: XYLOCAINE 2%-EPI 1:100,000 20 ML VIAL ONE (13:46)
[2020-07-13] MEDS ORDERED: Famotidine/PF 20 mg/2ml Vial ONE (13:48)
[2020-07-13] MEDS ORDERED: Midazolam HCl 2 mg/2 ml Vial ONE (14:19)
[2020-07-13] MEDS ORDERED: SUGAMMADEX SODIUM 200 MG/2 ML VIAL ONE (14:53)
--- NOTE | 2020-07-13 15:10 | PDOC.HOSPP ---
- Subjective Encounter Date: 07/13/20 Subjective: Continues to have abdominal pain - Objective Vital Signs & Weight: Vital Signs (12 hours) Temp Pulse Resp BP BP Pulse Ox 07/13/20 11:06 97.6 F 64 16 101/72 100 07/13/20 07:40 97.8 F 70 16 97/68 97 07/13/20 04:00 97.4 F L 80 18 119/63 100 Weight Weight 164 lb 14.492 oz I&O: 07/12/20 07/13/20 07/14/20 06:59 06:59 06:59 Intake Total 2932 Output Total 1800 Balance 1132 Result Diagrams: 07/13/20 01:48 07/13/20 01:48 Hospitalist ROS - Medication Medications: Active Medications Generic Name Dose Route Start Last Admin Trade Name Freq PRN Reason Stop Dose Admin Bupropion HCl 150 mg 07/11/20 21:00 07/12/20 21:15 Bupropion 150 Mg Sr Tab PO 07/13/20 21:01 150 mg 2100 DANIKA Administration Famotidine 20 mg 07/11/20 21:00 07/13/20 08:52 Famotidine/Pf 20 Mg/2ml Vial SLOW IVP Not Given Q12HR DANIKA Fentanyl 25 mcg 07/12/20 10:30 07/13/20 13:04 Fentanyl 100 Mcg/2 Ml Vial SLOW IVP 25 mcg Q2H PRN Administration Pain Heparin Sodium (Porcine) 5,000 units 07/11/20 21:00 07/13/20 09:52 Heparin 5,000 Units/Ml Vial SC Not Given TID DANIKA Dextrose/Sodium Chloride 1,000 mls @ 125 mls/hr 07/11/20 21:00 07/13/20 08:55 D5 0.9% Ns IV 1,000 mls .Q8H DANIKA Administration Piperacillin Sod/Tazobactam 100 mls @ 200 mls/hr 07/13/20 10:00 07/13/20 09:39 Sod 3.375 gm/ Sodium Chloride IVPB 100 mls 0400,1000,1600,2200 DANIKA Administration Nicotine 21 mg 07/11/20 21:00 07/12/20 21:15 Nicotine 21 Mg Patch TD 21 mg Q24HR DANIKA Administration Sodium Chloride 10 ml 07/12/20 21:00 07/13/20 08:52 Flush - Normal Saline 10 Ml Syringe IVF 10 ml Q12HR DANIKA Administration Hospitalist Exam Vitals: Vital Signs (12 hours) Temp Pulse Resp BP BP Pulse Ox 07/13/20 11:06 97.6 F 64 16 101/72 100 07/13/20 07:40 97.8 F 70 16 97/68 97 07/13/20 04:00 97.4 F L 80 18 119/63 100 Weight Weight 164 lb 14.492 oz General Appearance: NAD Eye: PERRL, anicteric sclera ENT: normocephalic atraumatic Neck: supple, symmetric, no JVD Heart: RRR, no murmur, no gallops Respiratory: CTAB, no wheezes, no rales, no ronchi Gastrointestinal: tender to palpation Extremities: no cyanosis, no clubbing, no edema Hosp A/P (1) Appendiceal abscess Code(s): K35.33 - ACUTE APPENDICITIS WITH PERF AND LOC PERITONITIS, WITH ABSCS Status: Acute (2) Tobacco abuse Code(s): Z72.0 - TOBACCO USE Status: Acute (3) Polysubstance abuse Code(s): F19.10 - OTHER PSYCHOACTIVE SUBSTANCE ABUSE, UNCOMPLICATED Status: Acute - Plan Plan for today 07/12 Patient continues to have abdominal pain, he is awaiting surgical evaluation. We will continue with his current antibiotics and will continue hydrating him, will provide him with IV fentanyl for pain control since he is allergic to morphine. Plan for today 07/13 He continues to have abdominal pain, he will be going for surgical intervention soon otherwise continue current antibiotics continue with IV fentanyl for pain control, further management as per surgical team.
[2020-07-13] MEDS ORDERED: traMADol HCl 50 MG TAB PO PRN ×2 (16:17)
[2020-07-13] MEDS ORDERED: Acetaminophen 500 MG TAB PO SCH (16:30)
[2020-07-13] MEDS ORDERED: Promethazine HCl 25 MG/ML VIAL ONE (16:35)
[2020-07-13] MEDS: Ketorolac Tromethamine 30 MG/ML VIAL IVP SCH ×2 (19:27→23:19)
[2020-07-13] MEDS: Bupropion 150 MG SR TAB PO SCH (21:17)
[2020-07-13] MEDS: Nicotine 21 MG PATCH TD SCH (21:17)
[2020-07-13] MEDS: Enoxaparin Sodium 40 MG/0.4 ML SYRINGE SC SCH (21:17)
--- NOTE | 2020-07-13 22:33 | OP ---
DATE OF PROCEDURE: 07/13/2020 PREOPERATIVE DIAGNOSES: Acute appendicitis with perforation and periappendiceal abscess. POSTOPERATIVE DIAGNOSES: Acute appendicitis with necrosis, perforation and periappendiceal abscess. PROCEDURE PERFORMED: Laparoscopic appendectomy and drainage of periappendiceal abscess. ANESTHESIA: General endotracheal. ESTIMATED BLOOD LOSS: 20 mL. FLUIDS GIVEN: 1100 mL crystalloids. COUNTS: Sponge and instrument counts were verified as correct x2. COMPLICATIONS: None apparent. INDICATION FOR OPERATION: A 35-year-old man presented to the emergency department 8 days after the onset of abdominal pain. Clinical and radiographic examination were consistent with missed acute appendicitis with perforation and periappendiceal abscess. This was not amenable to percutaneous drainage per Interventional Radiology due to adherent small bowel. The patient was brought to the operating room for laparoscopic appendectomy. Findings are consistent with necrotic appendix with periappendiceal abscess and fecalith which was evacuated. DESCRIPTION OF PROCEDURE: Informed consent was obtained from the patient, was brought to the operating room and placed in supine position. Following general anesthesia, a Singh catheter was inserted and placed to bedside drain. Abdomen was sterilely prepped and draped in usual fashion. The skin below the umbilicus was infiltrated with 0.25% Marcaine with epinephrine. A small curvilinear infraumbilical incision was made using 11 scalpel. Umbilical stalk was grasped with Perla and elevated. A Veress needle was inserted through the incision and placed in the peritoneal cavity through which the abdomen was insufflated with 3 L of CO2 gas. Intraabdominal pressure was noted at 2 mmHg. Following abdominal insufflation, Veress needle was removed and a 5 mm trocar introduced using Visiport under laparoscopy. Laparoscopy confirmed proper placement of the port and no injuries to underlying structures. Additional laparoscopy reveals right lower quadrant completely encased by omental adhesions obscuring it. Under direct laparoscopy, two 5 mm suprapubic and left lower quadrant ports were placed after the overlying skin were infiltrated with 0.25% Marcaine with epinephrine. Appropriate incision was made. The patient was placed in a Trendelenburg position, rotated to his left. I introduced a Prestige grasper through the left lower quadrant port site, using this to bluntly take down omental adhesions to expose the markedly thick-walled distal ileum which was manipulated using another Prestige grasper. We were able to follow this into the right lateral gutter, taking down adherent fibrinous tissues bluntly. The abscess cavity was entered, evacuating purulent pus and appendicolith. Necrotic appendix was also seen with the tip entering the pelvis. We grasped this with a Prestige grasper and followed this to the base of the appendix where the appendix was divided between Endoloop and delivered out of the abdominal cavity using an EndoCatch. The abscess cavity was copiously irrigated with saline. The fibrinous exudates were evacuated using suction. We ran the small bowel from the ileocecal junction to proximal 2 feet finding no Meckel diverticulum. Finding no other pathology, laparoscopy was terminated at this juncture. A #19 Froilan drain introduced into the abdominal cavity. The tip was abutting the operative site and the mid portion of the drain catheter is in the pelvis and allowed to exit through the suprapubic port site. The drain was secured to anterior abdominal wall using 2-0 silk suture. The abdomen was desufflated. All ports and instruments removed and accounted. Skin incisions were closed using 4-0 Monocryl suture in subcuticular fashion. Dermabond was applied over incisional closure. The patient tolerated the procedure without any apparent complication and was returned to recovery room in satisfactory condition. Job ID: [id number]
[2020-07-14] MEDS: Fentanyl 100 MCG/2 ML VIAL SLOW IVP PRN (04:56)
[2020-07-14] MEDS: Ketorolac Tromethamine 30 MG/ML VIAL IVP SCH ×4 (04:56→23:32)
[2020-07-14] MEDS: Dextrose 5 % And 0.9 % NaCl 1,000 ML IV SCH ×2 (04:57→08:45)
[2020-07-14] MEDS: Piperacillin/Tazobactam 3.375 GM in Sodium Chloride 0.9% 100 ML IVPB SCH ×4 (04:57→23:33)
[2020-07-14 05:42] LABS: Anion Gap 14 mmol/L (10-20); BUN (Urea Nitrogen) 11 mg/dL (8.9-20.6); Calc. Creatinine Clearance 124 mL/min (70-130); Calcium 7.9 mg/dL (7.8-10.44); Carbon Dioxide 22 mmol/L (22-29); Chloride 105 mmol/L (98-107); Glucose 126 mg/dL (70-105); Potassium 4.4 mmol/L (3.5-5.1); Sodium 137 mmol/L (136-145)
[2020-07-14 06:11] LABS: Band 10 % (5-11); Hypochromia SLIGHT = 6-15 cells (100X) (0-5/hpf); Lymphocytes 5 % (21-51); MDiff Complete? YES; Mean Corpuscular HGB CONC 33.1 g/dL (32.0-36.0); Mean Corpuscular Hemoglobin 29.3 pg (27.0-31.0); Mean Corpuscular Volume 88.4 fL (78.0-98.0); Mean Platelet Volume 6.1 fL (7.4-10.4); Monocytes 12 % (0-10); Neutrophil 73 % (42-75); Platelet Count 514 thou/uL (130-400); Platelet Morphology Comment Appears Increased; RBC Distribution Width 12.1 % (11.5-14.5); White Blood Cell (WBC) Count 21.6 thou/uL (4.8-10.8)
--- NOTE | 2020-07-14 07:46 | PDOC.HOSPP ---
- Subjective Encounter Date: 07/14/20 Encounter Time: 07:46 Subjective: only complaint is RLQ pain - Objective Vital Signs & Weight: Vital Signs (12 hours) Temp Pulse Resp BP Pulse Ox 07/14/20 05:10 97.9 F 79 18 119/71 96 07/13/20 23:25 98.0 F 80 18 127/80 98 07/13/20 21:30 82 142/87 H Weight Weight 164 lb 14.492 oz I&O: 07/13/20 07/14/20 07/15/20 06:59 06:59 06:59 Intake Total 2932 2770 Output Total 1800 1610 Balance 1132 1160 Result Diagrams: 07/14/20 05:16 07/14/20 05:16 Hospitalist ROS - Medication Medications: Active Medications Generic Name Dose Route Start Last Admin Trade Name Freq PRN Reason Stop Dose Admin Enoxaparin Sodium 40 mg 07/13/20 21:00 07/13/20 21:17 Enoxaparin Sodium 40 Mg/0.4 Ml Syringe SC 40 mg 2100 DANIKA Administration Famotidine 20 mg 07/11/20 21:00 07/13/20 21:17 Famotidine/Pf 20 Mg/2ml Vial SLOW IVP 20 mg Q12HR DANIKA Administration Dextrose/Sodium Chloride 1,000 mls @ 125 mls/hr 07/11/20 21:00 07/14/20 04:57 D5 0.9% Ns IV 1,000 mls .Q8H DANIKA Administration Piperacillin Sod/Tazobactam 100 mls @ 200 mls/hr 07/13/20 10:00 07/14/20 04:57 Sod 3.375 gm/ Sodium Chloride IVPB 100 mls 0400,1000,1600,2200 DANIKA Administration Ketorolac Tromethamine 30 mg 07/13/20 18:00 07/14/20 04:56 Ketorolac Tromethamine 30 Mg/Ml Vial IVP 07/18/20 18:01 30 mg Q6HR DANIKA Administration Nicotine 21 mg 07/11/20 21:00 07/13/20 21:17 Nicotine 21 Mg Patch TD 21 mg Q24HR DANIKA Administration Sodium Chloride 10 ml 07/12/20 21:00 07/13/20 21:32 Flush - Normal Saline 10 Ml Syringe IVF 10 ml Q12HR DANIKA Administration Hospitalist Exam Vitals: Vital Signs (12 hours) Temp Pulse Resp BP Pulse Ox 07/14/20 05:10 97.9 F 79 18 119/71 96 07/13/20 23:25 98.0 F 80 18 127/80 98 07/13/20 21:30 82 142/87 H Weight Weight 164 lb 14.492 oz General Appearance: awake alert Neck: no JVD Heart: RRR, irregular Respiratory: CTAB Gastrointestinal: soft, normal bowel sounds, tender to palpation Gastrointestinal - other findings: RLQ tenderness Extremities: no edema Hosp A/P (1) Appendicitis Code(s): K37 - UNSPECIFIED APPENDICITIS Status: Acute Qualifiers: Appendicitis type: acute appendicitis Appendicitis perforation presence: with perforation Appendicitis abscess presence: with abscess (2) Tobacco abuse Code(s): Z72.0 - TOBACCO USE Status: Chronic (3) Polysubstance abuse Code(s): F19.10 - OTHER PSYCHOACTIVE SUBSTANCE ABUSE, UNCOMPLICATED Status: Chronic - Plan analgesia per surgery antibx per surgerry discuss with Dr Salinas
[2020-07-14] MEDS ORDERED: Nicotine 21 MG PATCH TD PRN (07:57)
[2020-07-14] MEDS: Famotidine/PF 20 mg/2ml Vial SLOW IVP SCH ×2 (08:46→20:19)
[2020-07-14 09:39] LABS: Lead-Whole Blood 2 ug/dL (0-4)
--- NOTE | 2020-07-14 12:53 | PDOC.GSPN ---
Surgery Progress Note: Subj - Subjective Patient reports: feels better, pain well controlled, tolerating liquids well, no bowel movement Narrative: Mr. Choi is post-op day 1 from laparoscopic appendectomy and drainage of abscess. He feels much better today. He has not had a bowel movement yet but stated that he feels like he needs to. He is tolerating liquids well. He has not been up to walk since his procedure. Mr. Choi is sitting up in his hospital bed and he is very communicative. He is much more animated than he was yesterday before his procedure. His mood is happy and his affect is mood congruent. He is alert and oriented x3. His speech quantity, rate and volume are appropriate. GCS score is 15. Surgery Progress Note: Obj - Vital signs Vital signs: Vital Signs - Most Recent Temp Pulse Resp BP Pulse Ox 98.1 F 87 16 115/74 100 07/14/20 11:50 07/14/20 11:50 07/14/20 11:50 07/14/20 11:50 07/14/20 11:50 - Physical Exam General: no distress Abdomen: soft, appropriately tender Wound: dressing clean,dry,intact Surgery Progress Note: Results - Labs Result Diagrams: 07/15/20 05:34 07/15/20 05:34 Lab results: Laboratory Results - last 12 hr 07/11/20 07/14/20 07/14/20 18:00 05:16 05:16 WBC 21.6 H RBC 3.40 L Hgb 10.0 L Hct 30.1 L MCV 88.4 MCH 29.3 MCHC 33.1 RDW 12.1 Plt Count 514 H MPV 6.1 L Neutrophils % (Manual) 73 Band Neuts % (Manual) 10 Lymphocytes % (Manual) 5 L Monocytes % (Manual) 12 H Hypochromia SLIGHT = 6-15 cells Plt Morphology Comment Appears Increased H Sodium 137 Potassium 4.4 Chloride 105 Carbon Dioxide 22 Anion Gap 14 BUN 11 Creatinine 0.86 Estimated GFR (MDRD) Greater than 90 Glucose 126 H Calcium 7.9 Whole Blood Lead 2 Surgery Progress Note: A/P - Problem (1) Appendiceal abscess Current Visit: Yes Code(s): K35.33 - ACUTE APPENDICITIS WITH PERF AND LOC PERITONITIS, WITH ABSCS Status: Acute (2) Tobacco abuse Current Visit: No Code(s): Z72.0 - TOBACCO USE Status: Chronic (3) Appendicitis Current Visit: Yes Code(s): K37 - UNSPECIFIED APPENDICITIS Status: Acute Qualifiers: Appendicitis type: acute appendicitis Appendicitis perforation presence: with perforation Appendicitis abscess presence: with abscess (4) Polysubstance abuse Current Visit: No Code(s): F19.10 - OTHER PSYCHOACTIVE SUBSTANCE ABUSE, UNCOMPLICATED Status: Chronic (5) Encephalopathy acute Current Visit: No Code(s): G93.40 - ENCEPHALOPATHY, UNSPECIFIED Status: Acute - Plan Plan: Mr. Choi is a 35 year old male post-op day 1 from laparoscopic appendectomy and drainage of abscess. IV was removed since Mr. Choi is tolerating liquids. We encouraged Mr. Choi to get up and walk. Continue to monitor input and urine output. Addendum - Attending - Attending Attestation Date/Time: 07/15/20 [id number] I personally evaluated the patient and discussed the management with Dr. [] I agree with the History, Examination, Assessment and Plan documented above with any addition or exceptions noted below.
[2020-07-14] MEDS ORDERED: Acetaminophen/Codeine 30-300mg Tablet PO PRN (14:56)
[2020-07-14] MEDS: Acetaminophen/Codeine 30-300mg Tablet PO PRN ×2 (15:31→23:33)
[2020-07-14] MEDS: Senokot S 8.6-50 MG TAB PO SCH ×2 (15:31→20:19)
[2020-07-14] MEDS: Acetaminophen 325 MG TAB PO SCH ×2 (17:48→23:45)
[2020-07-14] MEDS: Enoxaparin Sodium 40 MG/0.4 ML SYRINGE SC SCH (20:20)
[2020-07-15] MEDS: Piperacillin/Tazobactam 3.375 GM in Sodium Chloride 0.9% 100 ML IVPB SCH (05:35)
[2020-07-15] MEDS: Ketorolac Tromethamine 30 MG/ML VIAL IVP SCH (05:36)
[2020-07-15] MEDS: Acetaminophen/Codeine 30-300mg Tablet PO PRN (05:38)
[2020-07-15] MEDS: Acetaminophen 325 MG TAB PO SCH ×2 (05:53→12:57)
[2020-07-15 06:06] LABS: Band 12 % (5-11); Eosinophils 3 % (0-10); Hemoglobin 10.5 g/dL (14.0-18.0); Lymphocytes 20 % (21-51); MDiff Complete? YES; Mean Corpuscular HGB CONC 33.8 g/dL (32.0-36.0); Mean Corpuscular Hemoglobin 30.5 pg (27.0-31.0); Mean Corpuscular Volume 90.4 fL (78.0-98.0); Mean Platelet Volume 6.1 fL (7.4-10.4); Monocytes 8 % (0-10); Neutrophil 57 % (42-75); Platelet Count 469 thou/uL (130-400); Platelet Morphology Comment Appears Increased; RBC Distribution Width 12.5 % (11.5-14.5); Red Blood Cell (RBC) Count 3.45 mill/uL (4.70-6.10); White Blood Cell (WBC) Count 11.5 thou/uL (4.8-10.8)
[2020-07-15 06:14] LABS: Anion Gap 10 mmol/L (10-20); BUN (Urea Nitrogen) 9 mg/dL (8.9-20.6); Calc. Creatinine Clearance 111 mL/min (70-130); Carbon Dioxide 28 mmol/L (22-29); Chloride 104 mmol/L (98-107); Glucose 89 mg/dL (70-105); Magnesium 1.9 mg/dL (1.6-2.6); Phosphorus 2.6 mg/dL (2.3-4.7); Potassium 4.3 mmol/L (3.5-5.1); Sodium 138 mmol/L (136-145)
[2020-07-15] MEDS ORDERED: Acetaminophen/Codeine 30-300mg Tablet PO PRN (08:45)
[2020-07-15] MEDS ORDERED: Famotidine 20 MG TAB PO SCH (09:00)
[2020-07-15] MEDS ORDERED: Saccharomyces boulardii 250 MG CAP PO SCH (09:00)
[2020-07-15] MEDS ORDERED: Amoxicillin/Potassium Clav 875 MG TAB PO SCH (09:00)
[2020-07-15] MEDS: Senokot S 8.6-50 MG TAB PO SCH (10:01)
[2020-07-15] MEDS: Ibuprofen 200 MG TAB PO SCH ×2 (10:01→12:57)
--- NOTE | 2020-07-15 11:43 | PRG ---
DATE OF SERVICE: 07/15/2020 SUBJECTIVE: The patient was seen this morning during rounds. He was sitting up in bed with no signs of acute distress. Right lower quadrant abdominal drain continues to put out serosanguineous/peñaloza-colored output. The patient is tolerating clear liquid diet and was advanced to a regular diet today. His antibiotics were also changed from Zosyn to Augmentin for a total of 14 days of antibiotics. The patient reports pain is well controlled and had a bowel movement. OBJECTIVE: VITAL SIGNS: Temperature 98.1, pulse 85, respirations 12, oxygen saturation 100% on room air, blood pressure 101/61. GENERAL: Well-appearing middle-aged male, sitting up in bed with no signs of acute distress. PULMONARY: Equal chest rise and fall. Clear breath sounds bilaterally. No signs of acute respiratory distress. CARDIAC: Regular rate and rhythm. GI: Abdomen is soft, appropriately tender to palpation and nondistended. Abdominal wounds are healing, clean, dry, and intact. Right lower quadrant MADIHA drain with serosanguineous/peñaloza-colored output. MADIHA drain will be discontinued today. EXTREMITIES: 2+ pulses in all extremities. Gross motor and sensations intact. No significant swelling noted. NEURO: GCS is 15. LABORATORY FINDINGS: White count 11.5, hemoglobin 10.5, hematocrit 31.2, platelets 469. Sodium 138, potassium 4.3, chloride 104, bicarb 28, BUN 9, creatinine 0.96, glucose 89, phosphorus 2.6, magnesium 1.9. DIAGNOSTIC FINDINGS: There are no new diagnostic findings to report. ASSESSMENT: 1. Postoperative day 2 status post laparoscopic drainage of periappendiceal abscess due to ruptured appendicitis. 2. History of polysubstance abuse. PLAN: Continue current regular diet. Discontinue IV antibiotics. The patient to be on Augmentin for a total of 14 days. We will also start him on Florastor. It is our recommendation that he also be discharged on Florastor. He is ready for discharge at this time and can be discharged at the discretion of the primary team. MADIHA drain to be removed today by nursing. The patient will follow up in clinic with Dr. Salinas on July 29, 2020 at 10:30 a.m. This appointment has already been scheduled for him. If he has any questions, he can call to change the appointment as needed. This patient was seen and evaluated by Dr. Salinas and myself this morning during rounds. Job ID: [id number]
[2020-07-15] MEDS ORDERED: Acetaminophen/Codeine 30-300mg Tablet PO SCH (12:00)
[2020-07-15 12:53] VITALS: BP 101/64; TEMP 98.6
--- NOTE | 2020-07-15 13:50 | DIS ---
DATE OF ADMISSION: 07/11/2020 DATE OF DISCHARGE: 07/15/2020 PRIMARY CARE PHYSICIAN: No primary care doctor. FINAL DIAGNOSES: Appendicitis with perforation and appendiceal abscess, tobacco abuse. DISCHARGE MEDICATIONS: 1. Florastor 250 mg b.i.d. for 14 days. 2. Augmentin 875 b.i.d. for 14 days. ALLERGIES: MORPHINE. DIET: As tolerated. CODE STATUS: Full. Nothing pending at the time of discharge. HOSPITAL COURSE/ADMITTING LABORATORY: Elevated white count of 20,100, hemoglobin 12.1, platelet count of 509,000. His chemistry showed sodium 133, potassium 3.2. Comprehensive metabolic profile otherwise unremarkable. INR was 1.1. Urine was clear. Serology was no COVID. The patient had presented with abdominal pain, nausea for about 7 days, found to have an elevated white count. CT revealed acute appendicitis with perforated perforation and abscess. He was apparently referred to the surgery service, the hospitalist service admitted and then Dr. Ranulfo Salinas was consulted. The patient was initially taken on 07/13/2020 to the operating room. Procedure, laparoscopic appendectomy with drainage of appendiceal abscess. A drain was left in. The patient was treated with IV antibiotics and analgesics. He has improved. Past specimen, extensive necrotic tissue. The patient is doing well at the present time. He has a right lower quadrant drain. He has been discharged on the aforementioned medicines to follow up in [address] Salinas. Job ID: [id number] MTDD
== END 2020-07-15 15:45 | disposition home or self-care (01) | DRG 339 ==
LOC: ERS 12:41 → ERHOLD 21:38 → 2SE 07-12 13:28 → SURG B 07-13 17:26
PROVIDERS: ADMIT Internal Medicine; ATTEND Internal Medicine
PROC: 0DTJ4ZZ Resection of Appendix, Percutaneous Endoscopic Approach (ICD-10-PCS; principal; 2020-07-13)
PROC: 0D9J40Z Drainage of Appendix with Drainage Device, Percutaneous Endoscopic Approach (ICD-10-PCS; 2020-07-13)
DX: K35.33 Acute appendicitis with perforation, localized peritonitis, and gangrene, with abscess (principal); G93.40 Encephalopathy, unspecified; F17.210 Nicotine dependence, cigarettes, uncomplicated; F19.10 Other psychoactive substance abuse, uncomplicated; K56.41 Fecal impaction; Z20.822 Contact with and (suspected) exposure to COVID-19
CPT/HCPCS: 36415; 74176; 74177; 80048; 80053; 80202; 81003; 83605; 83655; 83690; 83735; 84100; 85007; 85025; 85027; 85610; 85730; 88304; 93005; 96365; J1100; J1644; J1650; J1885; J2250; J2405; J2543; J2550; J2704; J2765; J3010; J3370; J3490; Q9967; S0020; S0028; U0002

== ENCOUNTER 2020-11-15 11:03 | Emergency (ER) | payer SELFPAY ==
[2020-11-15 12:49] LABS: #Basophils 0.1 thou/uL (0.0-0.2); #Eosinphils 0.3 thou/uL (0.0-0.7); #Lymphocytes 1.6 thou/uL (1.20-3.40); #Monocytes 0.5 thou/uL (0.11-0.59); #Neutrophils 3.9 thou/uL (1.40-6.50); %Basophils 1.2 % (0.0-1.0); %Eosinophils 4.2 % (0.0-10.0); %Lymphocytes 25.4 % (21.0-51.0); %Neutrophils 61.2 % (42.0-75.0); Hemoglobin 13.6 g/dL (14.0-18.0); Mean Corpuscular HGB CONC 33.7 g/dL (32.0-36.0); Mean Corpuscular Hemoglobin 29.3 pg (27.0-31.0); Mean Corpuscular Volume 87.1 fL (78.0-98.0); Platelet Count 340 thou/uL (130-400); RBC Distribution Width 13.4 % (11.5-14.5); Red Blood Cell (RBC) Count 4.62 mill/uL (4.70-6.10); White Blood Cell (WBC) Count 6.3 thou/uL (4.8-10.8)
[2020-11-15 13:09] LABS: ALT (SGPT) 22 U/L (8-55); AST (SGOT) 22 U/L (5-34); Albumin 4.3 g/dL (3.5-5.0); Alkaline Phosphatase 89 U/L (40-110); Anion Gap 10 mmol/L (10-20); BUN (Urea Nitrogen) 17 mg/dL (8.9-20.6); Bilirubin, Total 0.4 mg/dL (0.2-1.2); Calc. Creatinine Clearance 0 mL/min (70-130); Calcium 9.5 mg/dL (7.8-10.44); Carbon Dioxide 29 mmol/L (22-29); Chloride 103 mmol/L (98-107); Globulin 3.9 g/dL (2.4-3.5); Glucose 102 mg/dL (70-105); Protein, Total 8.2 g/dL (6.0-8.3); Sodium 138 mmol/L (136-145)
== END 2020-11-15 15:19 | disposition home or self-care (01) ==
LOC: ERS 11:03
DX: A60.01 Herpesviral infection of penis (principal); F17.210 Nicotine dependence, cigarettes, uncomplicated
CPT/HCPCS: 36415; 80053; 85025; 99284

== ENCOUNTER 2022-01-21 16:29 | Inpatient (IN) | payer SELFPAY ==
[~2022-01-21 16:29] MED LIST changes: +Iopamidol 370 76% 100 ML VIAL ONE; -Iopamidol-370 76% 500 ML 1 ML ONE
[2022-01-21 17:09] LABS: Actual Bicarbonate (HCO3v) 18 mEq/L (22-28); Base Excess -2.4 mEq/L (-2.0 to +3.0); Calcium, Ionized (venous) 1.09 mmol/L (1.16-1.32); Chloride (VBG) 99 mmol/L (98-106); Potassium (VBG) 3.61 mmol/L (3.70-5.30); Sodium 137.4 mmol/L (133-146); pH (venous) 7.53 (7.32-7.43)
[2022-01-21 17:19] LABS: Mean Corpuscular HGB CONC 33.6 g/dL (32.0-36.0); Mean Corpuscular Hemoglobin 29.2 pg (27.0-31.0); Mean Platelet Volume 7.3 fL (7.4-10.4); Platelet Count 434 thou/uL (130-400); RBC Distribution Width 12.5 % (11.5-14.5); Red Blood Cell (RBC) Count 5.47 mill/uL (4.70-6.10)
[2022-01-21 17:34] LABS: ALT (SGPT) 19 U/L (8-55); AST (SGOT) 23 U/L (5-34); Albumin 4.6 g/dL (3.5-5.0); Alkaline Phosphatase 109 U/L (40-110); Anion Gap 26 mmol/L (10-20); BUN (Urea Nitrogen) 24 mg/dL (8.9-20.6); Bilirubin, Total 0.5 mg/dL (0.2-1.2); Calc. Creatinine Clearance 0 mL/min (70-130); Calcium 10.1 mg/dL (7.8-10.44); Carbon Dioxide 17 mmol/L (22-29); Chloride 98 mmol/L (98-107); Estimated GFR 62; Globulin 4.6 g/dL (2.4-3.5); Glucose 134 mg/dL (70-105); Lipase 13 U/L (8-78); Potassium 4.1 mmol/L (3.5-5.1); Protein, Total 9.2 g/dL (6.0-8.3); Sodium 137 mmol/L (136-145)
[2022-01-21 17:36] LABS: Band 11 % (5-11); Lymphocytes 19 % (21-51); MDiff Complete? YES; Monocytes 4 % (0-10); Neutrophil 64 % (42-75); Platelet Morphology Comment Appears Increased; RBC Morphology Normal
[2022-01-21 17:40] LABS: Acetaminophen Less than 10.0 mcg/mL (10.0-30.0); Alcohol Less than 10 mg/dL (Less than 10); Salicylate Less than 8.0 mg/dL (15.0-30.0)
[2022-01-21] MEDS ORDERED: Midazolam HCl 2 mg/2 ml Vial ONE (17:45)
[2022-01-21] MEDS ORDERED: Ondansetron PF 4 MG/2 ML Vial ONE ×2 (17:46→19:37)
[2022-01-21 17:47] LABS: SARS-CoV-2 NAA Rapid Test Not Detected (NotDetected)
[2022-01-21] MEDS ORDERED: Lidocaine 1% PF 5 ML VIAL ONE (18:04)
[2022-01-21] MEDS ORDERED: Cefepime 2 GM VIAL ONE (18:12)
[2022-01-21] MEDS ORDERED: Vancomycin 1.5 GRAM/300 ML BAG 1.5 GM in Premix Bag 1 BAG IVPB SCH (18:15)
[2022-01-21] MEDS ORDERED: Ondansetron ODT 4 MG TAB PO PRN (19:53)
[2022-01-21] MEDS ORDERED: Acetaminophen 325 MG TAB PO PRN (19:56)
[2022-01-21] MEDS ORDERED: Enoxaparin Sodium 40 MG/0.4 ML SYRINGE SC SCH (20:00)
[2022-01-21 20:41] LABS: Lactic Acid 1.3 mmol/L (0.5-2.2)
[2022-01-21 20:48] LABS: Amphetamine Detected (NotDetected); Barbiturates Screen Not Detected (NotDetected); Benzodiazepine Screen Not Detected (NotDetected); Cocaine Metabolite Screen Not Detected (NotDetected); Methadone Not Detected (NotDetected); Methamphetamine Detected (NotDetected); Opiate Screen Not Detected (NotDetected); Oxycodone Screen Not Detected (NotDetected); Phencyclidine (PCP) Not Detected (NotDetected); THC/Cannabinoid Screen Not Detected (NotDetected); Tricyclic Screen Not Detected (NotDetected)
[2022-01-21] MEDS: Lactated Ringer's 1,000 ML IV SCH (22:10)
[2022-01-21 22:28] VITALS: BMI 25.7
[2022-01-21] MEDS ORDERED: hydrOXYzine 25 MG TAB PO SCH (22:30)
[2022-01-21 22:35] LABS: HBCM Index 0.08 S/CO (0-0.79); HBSAg Index 0.32 S/CO (0-0.99); HIV (1/2) Antibody/Antigen Non-Reactive (NonReactive); HIV 1/2 INDEX 0.17 S/CO (<1.00); Hep A IgM AB Non-Reactive (NonReactive); Hep A IgM S/CO 0.44 S/CO (0-0.79); Hep B Surf Ag Non-Reactive S/CO (NonReactive); Hep C IgG Ab Non-Reactive (NonReactive); Hepatitis B Core IgM Abs Non-Reactive (NonReactive)
[2022-01-21 22:47] LABS: Hep C Index 0.04 S/CO (0-0.79)
[2022-01-22] MEDS: Lactated Ringer's 1,000 ML IV SCH ×2 (05:30→12:43)
[2022-01-22] MEDS ORDERED: Cefepime 2 GM in Sodium Chloride 0.9% 100 ML IVPB SCH (06:00)
[2022-01-22 06:34] LABS: #Basophils 0.1 thou/uL (0.0-0.2); #Eosinphils 0.3 thou/uL (0.0-0.7); #Lymphocytes 2.4 thou/uL (1.20-3.40); #Monocytes 0.5 thou/uL (0.11-0.59); #Neutrophils 3.9 thou/uL (1.40-6.50); %Basophils 0.8 % (0.0-1.0); %Eosinophils 3.7 % (0.0-10.0); %Lymphocytes 33.9 % (21.0-51.0); %Monocytes 7.3 % (0.0-10.0); %Neutrophils 54.4 % (42.0-75.0); Mean Corpuscular Volume 87.9 fL (78.0-98.0); Mean Platelet Volume 7.1 fL (7.4-10.4); Platelet Count 314 thou/uL (130-400); RBC Distribution Width 12.5 % (11.5-14.5); Red Blood Cell (RBC) Count 4.13 mill/uL (4.70-6.10); White Blood Cell (WBC) Count 7.2 thou/uL (4.8-10.8)
[2022-01-22 06:41] LABS: Anion Gap 12 mmol/L (10-20); BUN (Urea Nitrogen) 19 mg/dL (8.9-20.6); Calc. Creatinine Clearance 122 mL/min (70-130); Calcium 8.6 mg/dL (7.8-10.44); Carbon Dioxide 24 mmol/L (22-29); Chloride 104 mmol/L (98-107); Estimated GFR 102; Glucose 85 mg/dL (70-105); Potassium 3.8 mmol/L (3.5-5.1); Sodium 136 mmol/L (136-145)
[2022-01-22] MEDS ORDERED: VANCOMYCIN 1.25 GM/250 ML BAG 1.25 GM in Premix Bag 1 BAG IVPB SCH (08:00)
[2022-01-22] MEDS: hydrOXYzine 25 MG TAB PO SCH ×2 (08:30→12:43)
[2022-01-22 11:51] VITALS: BP 121/78; TEMP 97.7
[2022-01-22 11:53] LABS: Syphilis Antibody Nonreactive (Nonreactive); Syphilis Antibody Index 0.08 S/CO (<1.00 Non-Reactive)
== END 2022-01-22 12:53 | disposition home or self-care (01) | DRG 603 ==
LOC: ERS 16:29 → T4-A 18:36
PROVIDERS: ADMIT Family Medicine; ATTEND Family Medicine
PROC: 0J9H0ZZ Drainage of Left Lower Arm Subcutaneous Tissue and Fascia, Open Approach (ICD-10-PCS; principal; 2022-01-21)
DX: L03.114 Cellulitis of left upper limb (principal); N17.9 Acute kidney failure, unspecified; A08.4 Viral intestinal infection, unspecified; L02.414 Cutaneous abscess of left upper limb; Z20.822 Contact with and (suspected) exposure to COVID-19; F17.210 Nicotine dependence, cigarettes, uncomplicated; E86.0 Dehydration; F41.9 Anxiety disorder, unspecified; I45.81 Long QT syndrome; F15.10 Other stimulant abuse, uncomplicated; F12.10 Cannabis abuse, uncomplicated; F32.A Depression, unspecified; D75.839 Thrombocytosis, unspecified; Z88.5 Allergy status to narcotic agent; Z79.899 Other long term (current) drug therapy; Z90.49 Acquired absence of other specified parts of digestive tract; Z82.49 Family history of ischemic heart disease and other diseases of the circulatory system; Z82.5 Family history of asthma and other chronic lower respiratory diseases
CPT/HCPCS: 36415; 71045; 74177; 80048; 80053; 80074; 80306; 80307; 82805; 83605; 83690; 83735; 84484; 85025; 86780; 87040; 87086; 87389; 93005; 97139; J0692; J2250; J2405; J3370; J3490; J7120; Q0162; Q9967; U0002

== ENCOUNTER 2023-10-26 12:08 | Emergency (ER) | payer SELFPAY | END 2023-10-26 15:00 | disposition home or self-care (01) | LOC: ERS 12:08 | DX: L03.114 Cellulitis of left upper limb (principal); L03.113 Cellulitis of right upper limb; L03.116 Cellulitis of left lower limb; L03.115 Cellulitis of right lower limb; F17.210 Nicotine dependence, cigarettes, uncomplicated | CPT/HCPCS: 99283 ==